=== PATIENT | female | born 1975 | race Hispanic/Latino ===

== ENCOUNTER 2023-05-22 14:08 | Outpatient (CLI) | payer BC | END 2023-05-22 14:09 | disposition home or self-care (01) | LOC: BICMAMMO 14:08 | PROVIDERS: ATTEND Nurse Practitioner Community Health | DX: Z12.31 Encounter for screening mammogram for malignant neoplasm of breast (principal) | CPT/HCPCS: 77063; 77067 ==

== ENCOUNTER 2024-05-23 15:23 | Outpatient (CLI) | payer BC | END 2024-05-23 15:24 | disposition home or self-care (01) | LOC: BICMAMMO 15:23 | PROVIDERS: ATTEND Family Medicine | DX: Z12.31 Encounter for screening mammogram for malignant neoplasm of breast (principal) | CPT/HCPCS: 77063; 77067 ==

== ENCOUNTER 2024-08-22 14:58 | Outpatient (CLI) | payer BC | END 2024-08-22 14:59 | disposition home or self-care (01) | LOC: LABBT 14:58 | PROVIDERS: ATTEND Nurse Practitioner Family | DX: Z01.818 Encounter for other preprocedural examination (principal); R07.1 Chest pain on breathing | CPT/HCPCS: 71046 ==

== ENCOUNTER 2025-06-14 15:33 | Outpatient (CLI) | payer BC | END 2025-06-14 15:34 | disposition home or self-care (01) | LOC: BICMAMMO 15:33 | DX: Z12.31 Encounter for screening mammogram for malignant neoplasm of breast (principal) | CPT/HCPCS: 77063; 77067 ==